=== PATIENT | female | born 1960 | race Caucasian/White ===

== ENCOUNTER 2024-09-04 18:15 | Emergency (ER) | payer OTHER, SELFPAY ==
[2024-09-04 18:17] VITALS: BP 176/106
--- NOTE | 2024-09-04 18:29 | ED.GENMED ---
ED Provider Triage
<Mendez Maldonado PA-C - Last Filed: 09/04/24 18:31>
-
Patient seen by provider in Triage?: Seen in Triage
Attestation: A medical screening examination has been initiated by a qualified medical provider. Based on the assessment performed at this time, it has been determined that an emergent medical condition may exist and the patient has been informed
that further medical evaluation and possible additional diagnostic testing may be needed.
HPI: 63-year-old female with prior diagnosis of hypertension and diabetes presents for evaluation. She had a nurse come to the house today as she was standing up for new insurance. She was found to have high blood pressure and elevated blood
sugars. She went to the urgent care first and was sent here for further evaluation. Her blood sugar at the urgent care was over 400 and there blood pressure was elevated. She took extra losartan today. She has not had any of her blood pressure
medicine or medicine for diabetes in quite some time. EKG basic labs pending
GENERAL: Alert , in no apparent distress
EYE: No visual abnormalities.
NECK: Trachea midline
ENT: No visible abnormalities.
LUNGS: No acute respiratory distress
NEUROLOGICAL: Alert and oriented
SKIN: Skin intact. No visible changes.
MUSCULOSKELETAL: Moving extremities normally
PSYCH: Normal and appropriate interaction.
This is a medical evaluation conducted in person to initiate diagnostic evaluation and provide initial therapeutics. Please see further documentation by the treating clinician.
History of Present Illness
<Mendez Maldonado PA-C - Last Filed: 09/04/24 18:31>
General
Chief Complaint: Blood Pressure Problem
Time Seen by Provider: 09/04/24 22:00
<Beni Moran DO - Last Filed: 09/04/24 23:17>
General
Source: patient
Exam Limitations: none
Nursing documentation reviewed up to this point in time: agreed with
History of Present Illness
History of Present Illness:
63-year-old female presents with fatigue polydipsia polyuria, she recently started with new health insurance a nurse came to her house blood pressure was elevated, told to go to an urgent care who referred her here, she previously did call her new
PCP who was unable to see her until mid September, patient had 1 losartan from prior and took it earlier, previously told that she was diabetic on metformin has not had any diabetes meds for 3 to 4 years, she is disabled, due to back pain previously
worked as a dental hygienist she has been using milk thistle for her fatty liver/HANNAH has a family history of hypertension and diabetes denies chest pain or shortness of breath
Past History
<Mendez Maldonado PA-C - Last Filed: 09/04/24 18:31>
Past History
ED Past Medical History: GERD, HTN and NIDDM
ED Past Surgical History: Gynecological and Tonsilectomy
Social History
Tobacco: Smoker
Alcohol: Occasional
Drug: None
Personal: Single
Living: alone
Employment: Employed
Family History
Family History: Other (Father with hypertension diabetes. Mother with lung cancer)
<DO Gwen Emerson Last Filed: 09/04/24 23:17>
Past History
ED Past Medical History: Other (HANNAH fatty liver)
Review of Systems
<DO Gwen Emerson Last Filed: 09/04/24 23:17>
Review of Systems
All Other Systems: Not applicable
Constitutional: Reports fatigue; Denies fever
EENT: Reports no symptoms
Respiratory: Reports no symptoms
Cardiac: Reports no symptoms
ABD/GI: Reports nausea; Denies abdominal pain
: Reports no symptoms
Musculoskeletal: Reports no symptoms
Neurological: Reports dizzy and weakness
Endocrine: Reports polyuria and polydipsia
Hematologic/Lymphatic: Reports no symptoms
Psychiatric: Reports no symptoms
Phy Exam
<DO Gwen Emerson Last Filed: 09/04/24 23:17>
Physical Exam
Physical Exam:
Physical Exam
General: 63 female nontoxic
Neck: Dry lips
Heart: s1/s2 regular rate and rhythm, no murmur. equal radial pulses.
Lungs: no acute respiratory distress. clear bilaterally
Abdomen: Nontender
Neuro: alert and oriented. no focal neurological deficits
Skin: no rash
Psychiatric: well kept. interactive and cooperative
Extremities: no edema.
Course
<Mendez Maldonado PA-C - Last Filed: 09/04/24 18:31>
Orders/Labs/Results
Orders:
Orders
09/04/24 18:27
Electrocardiogram (*1) Urgent
Reason for Study: Chest Pain
EKG- Treatment ONCE
09/04/24 18:39
Complete Blood Count/With Diff Urgent
Comprehensive Metabolic Panel Urgent
Glycohemoglobin (HgbA1c) Urgent
Urinalysis Reflex To Culture Urgent
Date Specimen was Collected: 09/04/24
Time Specimen was Collected: 18:35
Urine Microscopic Reflex Cult Urgent
09/04/24 22:01
Add On- LAB Urgent
Tests Added?: hemoglobin aic
09/04/24 22:21
0.9% Sodium Chloride 1000 ml [Nss] 1,000 ml IV BOLUS
Insulin Aspart [NOVOLOG vial] 8 units SC NOW STA
Metoprolol [Lopressor] 25 mg PO NOW STA
Abnormal Lab Results
09/04/24 09/04/24
18:39 22:50
RBC 5.89 H 10^6/uL
(4.20-5.40)
Hgb 16.9 H g/dL
(12.0-16.0)
Hct 48.4 H %
(37.0-47.0)
Sodium 129 L mmol/L
(135-145)
Chloride 92 L mmol/L
(98-107)
Creatinine 0.5 L mg/dL
(0.6-1.0)
Glucose 371 H mg/dl
(70-99)
Ur Occult Blood Reflex 3+ A
(Negative)
Urine RBC 7-10 A /HPF
(0-2)
Urine Bacteria (Reflex) Few A
(Negative)
Urine Glucose 4+ A
(Negative)
Urine Albumin (Reflex) 2+ A
(Neg - Trace)
POC Glucose 299 H mg/dl
(70-99)
09/04/24 18:39
09/04/24 18:39
Vital Signs
Initial and Last Documented VS:
Initial Vital Signs
Temp Pulse Resp BP Pulse Ox
97.9 F 85 16 176/106 97
09/04/24 18:17 09/04/24 18:17 09/04/24 18:17 09/04/24 18:17 09/04/24 18:17
Last Documented Vital Signs
Temp Pulse Resp BP Pulse Ox
97.9 F 76 16 159/140 97
09/04/24 18:17 09/04/24 22:45 09/04/24 18:17 09/04/24 22:45 09/04/24 18:17
<Beni Moran, DO - Last Filed: 09/04/24 23:17>
Orders/Labs/Results
Orders:
Orders
09/04/24 18:27
Electrocardiogram (*1) Urgent
Reason for Study: Chest Pain
EKG- Treatment ONCE
09/04/24 18:39
Complete Blood Count/With Diff Urgent
Comprehensive Metabolic Panel Urgent
Glycohemoglobin (HgbA1c) Urgent
Urinalysis Reflex To Culture Urgent
Date Specimen was Collected: 09/04/24
Time Specimen was Collected: 18:35
Urine Microscopic Reflex Cult Urgent
09/04/24 22:01
Add On- LAB Urgent
Tests Added?: hemoglobin aic
09/04/24 22:21
0.9% Sodium Chloride 1000 ml [Nss] 1,000 ml IV BOLUS
Insulin Aspart [NOVOLOG vial] 8 units SC NOW STA
Metoprolol [Lopressor] 25 mg PO NOW STA
Abnormal Lab Results
09/04/24 09/04/24
18:39 22:50
RBC 5.89 H 10^6/uL
(4.20-5.40)
Hgb 16.9 H g/dL
(12.0-16.0)
Hct 48.4 H %
(37.0-47.0)
Sodium 129 L mmol/L
(135-145)
Chloride 92 L mmol/L
(98-107)
Creatinine 0.5 L mg/dL
(0.6-1.0)
Glucose 371 H mg/dl
(70-99)
Ur Occult Blood Reflex 3+ A
(Negative)
Urine RBC 7-10 A /HPF
(0-2)
Urine Bacteria (Reflex) Few A
(Negative)
Urine Glucose 4+ A
(Negative)
Urine Albumin (Reflex) 2+ A
(Neg - Trace)
POC Glucose 299 H mg/dl
(70-99)
09/04/24 18:39
09/04/24 18:39
Vital Signs
Initial and Last Documented VS:
Initial Vital Signs
Temp Pulse Resp BP Pulse Ox
97.9 F 85 16 176/106 97
09/04/24 18:17 09/04/24 18:17 09/04/24 18:17 09/04/24 18:17 09/04/24 18:17
Last Documented Vital Signs
Temp Pulse Resp BP Pulse Ox
97.9 F 76 16 159/140 97
09/04/24 18:17 09/04/24 22:45 09/04/24 18:17 09/04/24 22:45 09/04/24 18:17
<Beni Moran, DO - Last Filed: 09/04/24 23:17>
MDM/Problems Addressed
Differential Diagnosis Includes:
Diabetes noncompliance hypertension hypertensive urgency accelerated hypertension DKA HHNK
MDM/Problems Addressed:
Uncontrolled diabetes and high blood pressure noncompliant
Chronic conditions affecting care: DM and HTN
Acute Exacerbation and/or Progression of Chronic Illness: DM and HTN
<Beni Moran, DO - Last Filed: 09/04/24 23:17>
*Pulse Oximetry
Patient hypoxic: no
*EKG
Interpreted by ED Provider?: Yes
Interpretation: normal
Comparison EKG: no comparison EKG present
Heart Rate: 78
Rate: normal
Rhythm: sinus
Ischemia: non-specific ST changes
*Material Requirements Worker Interpretation
Rate: normal
Interpretation: normal
Heart Rate: 78
Rhythm: sinus
*Critical Care Note
Total Time (30-74mins, 75-104mins- exclusive of procedures): 15
<Beni Moran, DO - Last Filed: 09/04/24 23:17>
Update Note
Update Note:
Update, patient with high blood pressure high blood sugar, just recently got medical insurance seen by a nurse from her insurance company called her PCP who referred her to an urgent care urgent care referred to the ER, both I suspect her subacute
to chronic noncompliance versus insurance issues are playing a role at this point I believe it would be prudent to admit her to the hospital get everything under control, consideration for case management subspecialty consultation etc. as indicated
Update reviewed with hospitalist, will try to come up with an outpatient plan for the patient
ED Attending Note
<Mendez Maldonado PA-C - Last Filed: 09/04/24 18:31>
-
Portions of this chart may have been created with voice recognition software.� Occasional wrong word or��sound alike� substitutions may have occurred due to the inherent limitations of voice recognition software.
Discharge Plan
Departure
Patient Disposition: Home (Routine Discharge)
Date of Disposition: 09/04/24
Time of Disposition: 23:13
Patient with high blood pressure during this ER visit?: Yes
Condition: Good
Discharge Problem:
Hypertension, Hyperglycemia
Prescriptions:
New
metformin 500 mg tablet
500 mg PO BID Qty: 60 0RF
metoprolol tartrate 25 mg tablet
25 mg PO BID Qty: 60 0RF
No Action
milk thistle 500 mg Capsule
500 mg PO DAILY
zinc sulfate 50 mg zinc (220 mg) Tablet
50 mg PO DAILY
ascorbic acid (vitamin C) [Vitamin C] 500 mg Tablet
500 mg PO DAILY
cholecalciferol (vitamin D3) [Vitamin D3] 25 mcg (1,000 unit) Tablet
25 mcg PO DAILY
aspirin 81 mg Tablet,Chewable
81 mg PO DAILYPRN PRN (Reason: headache)
Referrals:
Luis M Kilgore MD [Active] - Next open appointment
Interventions
Interventions:
*Risk Screen - Suicide Last Done: 09/04/24 18:17
*General Assessment Last Done: 09/04/24 18:17
*Neglect/Abuse Screening Last Done: 09/04/24 18:17
Discharge Date and Time
Print Language: [place]
[2024-09-04 18:57] LABS: % Basophils 0.8 % (0-2); % Eosinophils 2.5 % (0-6); % Immature Granulocytes 0.1 % (0-0.5); % Monocytes 5.6 % (1.7-9.3); Absolute Basophils 0.1 10^3/uL (0-0.2); Absolute Eosinophils 0.2 10^3/uL (0-0.7); Absolute Lymphocytes 2.9 10^3/uL (1.2-3.4); Absolute Monocytes 0.4 10^3/uL (0.1-0.6); Hematocrit 48.4 % (37.0-47.0); Hemoglobin 16.9 g/dL (12.0-16.0); Mean Corp Hgb Conc. 34.9 g/dL (33.0-37.0); Mean Corpuscular Hgb 28.7 pg (27.0-31.0); Mean Corpuscular Volume 82.2 fL (81.0-99.0); Mean Platelet Volume 8.7 fL (7.4-10.4); Nucleated Red Blood Cells % 0 %; Platelet Count 254 10^3/uL (130-400); Red Blood Cell Count 5.89 10^6/uL (4.20-5.40); Red Cell Dist. Width 13.7 % (11.5-14.5); White Blood Cell Count 7.6 10^3/uL (4.8-10.8)
[2024-09-04 19:03] LABS: Urine Albumin 2+ (Neg - Trace); Urine Bilirubin Negative (Negative); Urine Character Clear (Clear); Urine Color Yellow; Urine Glucose 4+ (Negative); Urine Ketone Negative (Negative); Urine Leukocyte Negative (Negative); Urine Nitrite Negative (Negative); Urine Occult Blood 3+ (Negative); Urine Specific Gravity 1.015 (<1.030); Urine Urobilinogen Negative (Neg - 1+)
[2024-09-04 19:10] LABS: ALT (SGPT) 26 U/L (0-35); AST (SGOT) 25 U/L (14-36); Albumin 4.9 g/dl (3.5-5.0); Alkaline Phosphatase 125 U/L (38-126); Blood Urea Nitrogen 16 mg/dl (7-17); Calcium 10.2 mg/dl (8.4-10.2); Carbon Dioxide 25 mmol/L (22-30); Chloride 92 mmol/L (98-107); Glucose 371 mg/dl (70-99); Potassium 4.3 mmol/L (3.5-5.1); Sodium 129 mmol/L (135-145); Total Bilirubin 0.9 mg/dl (0.2-1.3); Total Protein 8.1 g/dl (6.3-8.2); eGFR > 60.00
[2024-09-04 19:27] LABS: Urine Bacteria Few (Negative)
[2024-09-04] MEDS: LOPRESSOR 25 MG PO (22:45)
[2024-09-04 22:46] VITALS: BP 159/140
[2024-09-04] MEDS: NOVOLOG vial 8 UNITS SC (22:48)
[2024-09-04 22:57] LABS: Glucose - Point of Care 299 mg/dl (70-99)
[2024-09-04] MEDS: NSS 1000 IV (23:15)
[2024-09-04 23:17] VITALS: BMI 35.9
[2024-09-04 23:26] VITALS: BP 148/80
[2024-09-05 10:03] LABS: Glycohemoglobin (HgbA1c) 14.5 % (4.0-5.6)
== END 2024-09-05 00:46 | disposition home or self-care (01) ==
LOC: EMR 18:15
PROVIDERS: Physician Assistant; EMERGENCY PHYSICIAN Emergency Medicine; FAMILY PHYSICIAN Family Medicine
DX: I10 Essential (primary) hypertension (principal); E11.65 Type 2 diabetes mellitus with hyperglycemia; R53.83 Other fatigue; R63.1 Polydipsia; R35.89 Other polyuria; K21.9 Gastro-esophageal reflux disease without esophagitis; F17.200 Nicotine dependence, unspecified, uncomplicated; K75.81 Nonalcoholic steatohepatitis (NASH); Z59.71 Insufficient health insurance coverage; Z80.1 Family history of malignant neoplasm of trachea, bronchus and lung; Z82.49 Family history of ischemic heart disease and other diseases of the circulatory system; Z83.3 Family history of diabetes mellitus; Z91.199 Patient's noncompliance with other medical treatment and regimen due to unspecified reason
CPT/HCPCS: 99283; 96360; 96372; 80053; 81003; 81015; 82962; 83036; 85025; 93005

== ENCOUNTER 2025-01-13 15:36 | Emergency (ER) | payer MEDICARE, SELFPAY ==
[2025-01-13 15:39] VITALS: BP 163/114
[2025-01-13 16:00] LABS: Hematocrit 47.9 % (37.0-47.0); Hemoglobin 16.7 g/dL (12.0-16.0); Mean Corp Hgb Conc. 34.9 g/dL (33.0-37.0); Mean Corpuscular Volume 83.7 fL (81.0-99.0); Nucleated Red Blood Cells % 0 %; Platelet Count 258 10^3/uL (130-400); Red Cell Dist. Width 13.3 % (11.5-14.5)
[2025-01-13 16:12] LABS: ALT (SGPT) 20 U/L (0-35); AST (SGOT) 18 U/L (14-36); Albumin 4.8 g/dl (3.5-5.0); Alkaline Phosphatase 106 U/L (38-126); Blood Urea Nitrogen 25 mg/dl (7-17); Calcium 10.4 mg/dl (8.4-10.2); Carbon Dioxide 22 mmol/L (22-30); Chloride 106 mmol/L (98-107); Glucose 337 mg/dl (70-99); Potassium 4.2 mmol/L (3.5-5.1); Sodium 135 mmol/L (135-145); Total Protein 8.2 g/dl (6.3-8.2); eGFR > 60.00
--- NOTE | 2025-01-13 17:34 | ED.CVA ---
History of Present Illness
General
Chief Complaint: CVA/TIA Symptoms
Time Seen by Provider: 01/13/25 17:13
Onset of Stroke Symptoms
Onset of symptoms known: Yes
Date of onset of symptoms: 01/11/25
History of Present Illness
History of Present Illness:
Patient is a 64-year-old female who presents with facial weakness. Symptoms started 2 days ago. Describes difficulty moving the right eyebrow as well as the right side of her face. Associated with some fullness on the right side of the face. She
has been having eye tearing as well since yesterday. She feels as if there is a 'film' over her right eye. Denies extremity symptoms. Denies dizziness. Denies difficulty speaking or walking.
Past History
Past History
ED Past Medical History: GERD, HTN, NIDDM and Other (HANNAH fatty liver)
ED Past Surgical History: Gynecological and Tonsilectomy
Social History
Tobacco: Smoker
Alcohol: Occasional
Drug: None
Personal: Single
Living: alone
Employment: Employed
Family History
Family History: Other (Father with hypertension diabetes. Mother with lung cancer)
Phy Exam
Physical Exam
Physical Exam:
GENERAL APPEARANCE: NAD, well developed/ well nourished
EYES the right eye is injected and tearing. Normal pupillary exam. Extraocular movements are intact
EARS/NOSE/THROAT Mucous membranes moist, uvula midline without oral pharyngeal erythema, exudate or swelling
HEAD/NECK normocephalic atraumatic, neck is supple.
RESPIRATORY respiratory effort normal, speaks in full sentences, no accessory muscle use. Lungs clear to auscultation without rhonchi, wheezes, rales
CARDIAC Regular rate and rhythm, no edema.
ABDOMINAL Soft, ND/NT. No pulsatile masses on exam, rebound tenderness, Watson sign or pain over Mcburney's point.
MUSCLES/EXTREMITIES No abnormal range of motion, no swelling.
SKIN Warm, pink and dry. No rashes
NEUROLOGICAL there is a right-sided peripheral facial nerve palsy. Cranial nerves II through XII otherwise are intact. Normal gait. No ataxia or dysmetria. Sensation intact to light touch throughout. 5 out of 5 strength in all extremities.
PSYCH Normal mood and affect. Judgement/competence is appropriate
Course
Orders/Labs/Results
Orders:
Orders
01/13/25 15:51
Complete Blood Count/With Diff Urgent
Comprehensive Metabolic Panel Urgent
01/13/25 18:05
Lyme Progressive Urgent
01/13/25 19:14
Tetracaine HCl [Tetracaine 0.5% Ophthalmic Solution] 1 drop .ROUTE .[facility]
Abnormal Lab Results
01/13/25
15:51
RBC 5.72 H 10^6/uL
(4.20-5.40)
Hgb 16.7 H g/dL
(12.0-16.0)
Hct 47.9 H %
(37.0-47.0)
BUN 25 H mg/dl
(7-17)
Glucose 337 H mg/dl
(70-99)
Calcium 10.4 H mg/dl
(8.4-10.2)
01/13/25 15:51
01/13/25 15:51
Vital Signs
Initial and Last Documented VS:
Initial Vital Signs
Temp Pulse Resp BP Pulse Ox
98.1 F 101 18 163/114 97
01/13/25 15:39 01/13/25 15:39 01/13/25 15:39 01/13/25 15:39 01/13/25 15:39
Last Documented Vital Signs
Temp Pulse Resp BP Pulse Ox
98.1 F 85 18 149/93 98
01/13/25 15:39 01/13/25 18:04 01/13/25 18:04 01/13/25 18:04 01/13/25 18:04
*Pulse Oximetry
SaO2: 97
Oxygen Mode of Delivery: Room air
Patient hypoxic: no
*Critical Care Note
Total Time (30-74mins, 75-104mins- exclusive of procedures): Not Applicable
ED Attending Note
ED Attending Note
ED Attending Note:
History and exam consistent with Scott's palsy. Patient denies any recent bug bites or tick bites. However, given location and time of year, will send Lyme panel. Patient is a poorly controlled diabetic and not a good candidate for steroid
therapy. Will start on Valtrex. Fluorescein staining without any corneal abrasion. Patient instructed on using artificial tears and taping her eye shut at night. 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 Will start
on Valtrex.
-
Portions of this chart may have been created with voice recognition software.� Occasional wrong word or��sound alike� substitutions may have occurred due to the inherent limitations of voice recognition software.
Discharge Plan
Departure
Patient Disposition: Home (Routine Discharge)
Date of Disposition: 01/13/25
Time of Disposition: 17:49
Patient with high blood pressure during this ER visit?: Yes
Discharge Problem:
Scott's palsy
Instructions: Scott's Palsy (DC)
Prescriptions:
New
valacyclovir 1 gram tablet
1,000 mg PO TID 7 Days Qty: 21 0RF
No Action
milk thistle 500 mg Capsule
500 mg PO DAILY
zinc sulfate 50 mg zinc (220 mg) Tablet
50 mg PO DAILY
ascorbic acid (vitamin C) [Vitamin C] 500 mg Tablet
500 mg PO DAILY
cholecalciferol (vitamin D3) [Vitamin D3] 25 mcg (1,000 unit) Tablet
25 mcg PO DAILY
aspirin 81 mg Tablet,Chewable
81 mg PO DAILYPRN PRN (Reason: headache)
metformin 500 mg tablet
500 mg PO BID Qty: 60 0RF
metoprolol tartrate 25 mg tablet
25 mg PO BID Qty: 60 0RF
glipizide 2.5 mg tablet
2.5 mg PO BID Qty: 60 0RF
Referrals:
UNKNOWN - PT DOES,NOT KNOW [Unknown Provider]
Activity Restrictions/Additional Instructions:
Please buy artificial tears from the pharmacy. Use the eyedrops throughout the day as indicated per package instructions. Please tape your eye shut at night. Follow-up with your superintendent factory with severe pain in the right eye or blurry vision.
We sent blood test for Lyme disease and we will call you if this is positive.
Interventions
Interventions:
*Risk Screen - Suicide Last Done: 01/13/25 15:43
*General Assessment Last Done: 01/13/25 15:43
*Neglect/Abuse Screening Last Done: 01/13/25 15:44
*ED- Fall Risk Assessment Last Done: 01/13/25 18:00
*ED COVID-19 Vaccine History Last Done: 01/13/25 18:00
*Nursing Disposition Last Done: 01/13/25 18:55
ED- Pulmonary Assessment Last Done: 01/13/25 18:00
ED- Neurological Assessment Last Done: 01/13/25 18:00
ED- Cardiac Assessment Last Done: 01/13/25 18:00
ED Swallowing Screen Last Done: 01/13/25 18:03
Discharge Date and Time
Discharge Date/Time: 01/13/25 18:55
Print Language: [email or web address]
[2025-01-13 17:59] VITALS: BMI 38.1
[2025-01-13 18:04] VITALS: BP 149/93
[2025-01-16 14:14] LABS: Lyme Antibody Screen, EIA Negative (Negative)
== END 2025-01-13 18:55 | disposition home or self-care (01) ==
LOC: EMR 15:36
PROVIDERS: Emergency Medicine; EMERGENCY PHYSICIAN Emergency Medicine; FAMILY PHYSICIAN Physician Assistant
DX: G51.0 Bell's palsy (principal); E11.9 Type 2 diabetes mellitus without complications; I10 Essential (primary) hypertension; F17.200 Nicotine dependence, unspecified, uncomplicated
CPT/HCPCS: 99283; 80053; 85025; 86618